=== PATIENT | male | born 2000 | race Caucasian/White ===

== ENCOUNTER 2024-03-13 11:47 | Emergency (ER) | payer OTHER ==
--- NOTE | 2024-03-13 12:02 | ED ---
Lower Extremity Injury HPI - General Chief Complaint: Extremity Injury, Lower Stated Complaint: Injury to R foot Time Seen by Provider: 03/13/24 12:01 Source: patient, RN notes reviewed Mode of arrival: ambulatory Limitations: no limitations - History of Present Illness Initial Comments: This is a 23-year-old male who presents to the emergency department for a right foot injury. Patient is currently at [facility] and states that he dropped a 10lb medicine ball on his right foot and has since had increasing pain, bruising, and swelling. He is still able to ambulate and is not having difficulty putting his shoes on or off. - Related Data Allergies Allergy/AdvReac Type Severity Reaction Status Date / Time No Known Allergies Allergy Verified 03/13/24 12:44 Review of Systems ROS Statement: Those systems with pertinent positive or pertinent negative responses have been documented in the HPI. ROS Other: All systems not noted in ROS Statement are negative. General Exam Limitations: no limitations General appearance: alert, in no apparent distress Head exam: Present: atraumatic, normocephalic, normal inspection Respiratory exam: Present: normal lung sounds bilaterally. Absent: respiratory distress, wheezes, rales, rhonchi, stridor Cardiovascular Exam: Present: regular rate, normal rhythm, normal heart sounds. Absent: systolic murmur, diastolic murmur, rubs, gallop, clicks Extremities exam: Present: other (Ecchymosis and tenderness to the second, third, and fifth toe on his right foot. 2+ DP and PT pulses. Full range of motion.) Neurological exam: Present: alert, oriented X3, CN II-XII intact Psychiatric exam: Present: normal affect, normal mood Course Vital Signs 03/13/24 03/13/24 12:39 14:27 Temperature 98 F 97.9 F Pulse Rate 78 76 Respiratory 18 18 Rate Blood Pressure 119/77 122/76 O2 Sat by Pulse 98 98 Oximetry Medical Decision Making - Medical Decision Making This is a 23 year old male who presents to the emergency department for a right foot injury. Was pt. sent in by a medical professional or institution? @ -No Did you speak to anyone other than the patient for history? @ -No Did you review nursing and triage notes? @ -Yes, and I agree, it is accurate with regards to the patient's symptoms. Were old charts reviewed? @ -No Differential Diagnosis? @ -Differential Musculoskeletal: Muscular strain, contusion, ligament sprain, fracture, arthritis, septic arthritis, bursitis, cellulitis, muscle spasm, nerve compression, DVT, arterial occlusion, herpes zoster, electrolyte abnormality, tumor.... This is not meant to be in all inclusive list EKG interpreted by me (3pts min.)? @ -Not obtained X-rays interpreted by me (1pt min.)? @ -X-ray of the right foot obtained. My interpretation identifies no acute fractures. CT interpreted by me (1pt min.)? @ -Not obtained U/S interpreted by me (1pt. min.)? @ -Not obtained What testing was considered but not performed? (CT, X-rays, U/S, labs)? Why? @ -None What meds were considered but not given? Why? @ -None Did you discuss the management of the patient with other professionals? @ -No Did you reconcile home meds? @ -No Was smoking cessation discussed for >3mins.? @ -I discussed smoking cessation for greater than 3 minutes. The risk of smoking were discussed with the patient including but not limited to risks of cancer, stroke, coronary artery disease and COPD. Also discussed with patient were multiple methods of quitting smoking. Lastly we discussed the financial cost of smoking. Was critical care preformed (if so, how long)? @ -No Were there social determinants of health that impacted care today? How? (Homelessness, low income, unemployed, alcoholism, drug addiction, transportation, low edu. Level, literacy, decrease access to med. care, alf, rehab)? @ -No Was there de-escalation of care discussed even if they declined? (Discuss DNR or withdrawal of care, Hospice)? @ -No What co-morbidities impacted this encounter? (DM, HTN, Smoking, COPD, CAD, Cancer, CVA, Hep., AIDS, mental health diagnosis, sleep apnea, morbid obesity)? @ -Smoking Was patient admitted / discharged? @ -Discharged. X-ray of the right foot obtained demonstrating dorsal and lateral forefoot soft tissue swelling without acute osseous abnormality. Ibuprofen and Tylenol administered for pain relief. I did offer a Velcro shoe for support, however patient declined and states that he does not have difficulty with his current footwear. Advised continuing with ibuprofen and Tylenol as needed for pain relief as well as ice and elevation. Patient discharged back to [facility] in stable condition. Undiagnosed new problem with uncertain prognosis? @ -None Drug Therapy requiring intensive monitoring for toxicity (Heparin, Nitro, Insulin, Cardizem)? @ -None Were any procedures done? @ -None Diagnosis/symptom? @ -Right foot contusion Acute, or Chronic, or Acute on Chronic? @ -Acute Uncomplicated (without systemic symptoms) or Complicated (systemic symptoms)? @ -Uncomplicated Side effects of treatment? @ -None Exacerbation, Progression, or Severe Exacerbation] @ -Not applicable Poses a threat to life or bodily function? @ -No Return precautions reviewed in depth, the patient is instructed to return to the emergency department with any new, worsening, or concerning symptoms. Patient verbalized understanding. This case was discussed in detail with the attending ED physician, Dr. Reilly. Presentation, findings, and treatment plan discussed in detail as well. - Radiology Data Radiology results: report reviewed, image reviewed Disposition Clinical Impression: Contusion of right foot, Nicotine dependence Disposition: HOME SELF-CARE Instructions (If sedation given, give patient instructions): Foot Contusion (ED) Additional Instructions: Return to the emergency department with any new, worsening, or concerning symptoms. Alternate with ibuprofen and Tylenol as needed for pain relief. You can also apply ice and elevate the leg. Follow up with your primary care provider in 1-2 days. Is patient prescribed a controlled substance at d/c from ED?: No Referrals: None,Stated [Primary Care Provider] - 1-2 days Time of Disposition: 14:10
[2024-03-13 12:44] VITALS: RESP 18
[2024-03-13] MEDS: ACETAMINOPHEN TAB 500 MG TAB PO STA (13:10)
[2024-03-13] MEDS: IBUPROFEN 800 MG TAB PO STA (13:11)
--- NOTE | 2024-03-13 13:49 | XR ---
EXAMINATION TYPE: XR foot complete RT DATE OF EXAM: 03/13/2024 COMPARISON: NONE HISTORY: 23-year-old male injury and pain to the fifth toe after medicine ball fell on it TECHNIQUE: 3 views FINDINGS: Dorsal and lateral sided soft tissue swelling. No acute fracture, subluxation, dislocation is seen. Bone island first proximal phalanx. 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 IMPRESSION: 1. Dorsal and lateral forefoot soft tissue swelling; no acute osseous abnormality seen. 2. 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 Unclear if this is a congenital tarsal coal ition versus posttraumatic or degenerative ankylosis.
[2024-03-13 14:29] VITALS: BP 122/76; PULSE 76; TEMP 97.9
== END 2024-03-13 14:27 | disposition home or self-care (01) ==
LOC: EC 11:47
DX: S90.121A Contusion of right lesser toe(s) without damage to nail, initial encounter (principal); F17.200 Nicotine dependence, unspecified, uncomplicated; W20.8XXA Other cause of strike by thrown, projected or falling object, initial encounter
CPT/HCPCS: 99283; 99406